=== PATIENT | male | born 1965 | race Hispanic/Latino ===

== ENCOUNTER → 2018-12-02 | Outpatient (REF) ==
[~2018-12-02] MED LIST: ANTI-FUNGAL12 TOP; ASPIRIN LOW DOS81 M2 PO; ASPIRIN81 MG PO; CEPHALEXIN500 MG PO; CRESTOR40 MG PO; DIFLUCAN150 MG PO; ENALAPRIL2.5 MG PO; FLONASE NASAL50 MCG; GLIPIZIDE10 M1 PO; GLIPIZIDE10 MG PO; GLUCOPHAGE1000 MG PO; GLYNASE6 MG OR; INVOKANA300 MG PO; JANUVIA100 MG PO; JANUVIA25 MG PO; JANUVIA50 MG PO; LIPITOR20 MG PO; METFORMIN1000 MG PO; ROBITUSSIN AC10 ML PO; VASOTEC2.5 MG PO
== END | disposition home or self-care (01) | DRG 639 ==
LOC: LAB 07:02
PROVIDERS: ATTEND Nurse Practitioner
DX: E11.9 Type 2 diabetes mellitus without complications (principal); I10 Essential (primary) hypertension

== ENCOUNTER 2023-01-21 11:38 | Emergency (ER) | payer BC ==
[~2023-01-21] VITALS: Ht 182.9 cm; Wt 56.2 kg
[~2023-01-21 11:38] MED LIST changes: +SYNJARDY; +TRULICITY0.75 MG/0.
[2023-01-21 12:40] LABS: BASO% 0.2 % (0-3); EOS% 0.3 % (0-8); HEMATOCRIT 45.5 % (39.0-50.0); HEMOGLOBIN 15.3 g/dl (14.0-18.0); IMMATURE GRANULOCYTES 0.3 % (0.0-5.0); LYMPH% 10.3 % (15-41); MEAN CELL VOLUME 85.2 fL CALC (80.0-100.0); MEAN CORPUSCULAR HGB 28.7 pG CALC (26.0-32.0); MEAN CORPUSCULAR HGB CONC 33.6 g/dL CAL (32.0-36.0); MONO% 5.7 % (2-13); NEUT# 12.8 thou/uL (1.82-7.42); NEUT% 83.2 % (42-76); RED BLOOD COUNT 5.34 mill/uL (4.70-6.10); RED CELL DISTRI WIDTH 12.8 % (11.5-15.5)
[2023-01-21 12:41] LABS: URINE BILIRUBIN - DIPSTICK NEGATIVE (NEGATIVE); URINE BLOOD DIPSTICK LARGE (NEGATIVE); URINE GLUCOSE - DIPSTICK >=1000 mg/dL (NEGATIVE); URINE KETONE 40 mg/dL (NEGATIVE); URINE LEUK ESTERASE NEGATIVE (NEGATIVE); URINE PH 5.5 (4.5-8.0); URINE PROTEIN - DIPSTICK >=300 mg/dL (NEG-TRACE); URINE SPECIFIC GRAVITY >=1.030; URINE UROBILINOGEN - DIPSTICK 0.2 E.U./dL (0.2)
[2023-01-21 12:43] LABS: URINE NITRITE - DIPSTICK NEGATIVE (Negative)
[2023-01-21 12:44] LABS: URINE COLOR RED
[2023-01-21 12:46] LABS: URINE RBC TNTC RBC/hpf (0-5)
[2023-01-21 12:49] LABS: ALBUMIN 4.2 g/dL (3.2-5.0); ALKALINE PHOSPHATASE 89 u/l (38-126); ANION GAP 12 (6-22 (CALC)); BILIRUBIN, TOTAL 1.7 mg/dL (0.2-1.3); BUN 8 mg/dL (9-20); BUN/CREATININE RATIO 19 (12-20 (CALC)); CARBON DIOXIDE 28 mmol/l (22-30); CHLORIDE 98 mmol/l (95-108); CREATININE 0.4 mg/dL (0.7-1.3); GFR FOR AFR.AMER. > 60 ML/MIN (>=60 (CALC)); GFR OTHER RACES > 60 ML/MIN (>=60 (CALC)); POTASSIUM 3.9 mmol/l (3.5-5.1); SGOT/AST 41 u/l (17-59); SODIUM 134 mmol/l (137-146); TOTAL PROTEIN 7.3 g/dL (6.3-8.2)
[2023-01-21 12:54] LABS: INTERNATIONAL NORMALIZED RATIO 1.1 RATIO (0.7-1.3)
[2023-01-21] MEDS ORDERED: TAMSULOSIN0.4 MG PO (13:53)
[2023-01-21] MEDS ORDERED: TIZANIDINE2 MG PO (13:54)
[2023-01-21] MEDS ORDERED: KEFLEX500 MG PO (13:58)
[2023-01-21] MEDS ORDERED: COLACE100 MG PO (14:21)
[2023-01-21 14:25] VITALS: BP 143/74
== END 2023-01-21 14:37 | disposition home or self-care (01) | DRG 696 ==
LOC: ED 11:38
PROVIDERS: Nurse Practitioner
DX: R31.9 Hematuria, unspecified (principal); E11.9 Type 2 diabetes mellitus without complications
CPT/HCPCS: Q9967